=== PATIENT | female | born 1985 | race Caucasian/White ===

== ENCOUNTER 2016-08-30 06:14 | Day surgery (SDC) | payer OTHER ==
[~2016-08-30] VITALS: Ht 172.7 cm; Wt 71.0 kg
[~2016-08-30 06:14] MED LIST: No meds per pt.
[2016-08-30] MEDS ORDERED: LACTATED RINGERS 1,000 ML IV SCH (06:44)
[2016-08-30 06:48] VITALS: BP 115/81
[2016-08-30] MEDS ORDERED: BUPIVACAINE/PF-EPI 0.5% 1:200K ONE (06:52)
[2016-08-30] MEDS ORDERED: MIDAZOLAM 1 MG/ML, 2ML ONE (07:09)
[2016-08-30] MEDS ORDERED: FENTANYL PF 250 MCG/5ML ONE (07:09)
[2016-08-30] MEDS ORDERED: ONDANSETRON 2MG/ML, 2ML IVPush PRN (07:30)
[2016-08-30] MEDS ORDERED: PROMETHAZINE 25 MG/ML, 1ML IV PRN (07:30)
[2016-08-30] MEDS ORDERED: FENTANYL PF 100 MCG/2ML IV PRN (07:30)
[2016-08-30] MEDS ORDERED: HYDROmorphone 1 MG/ML, 1ML IV PRN (07:30)
[2016-08-30] MEDS ORDERED: OXYcodone 5 MG/5 ML ORAL.SOL UDC PO PRN (07:30)
[2016-08-30] MEDS ORDERED: MEPERIDINE/PF 25MG/0.5ML IVPush PRN (07:30)
[2016-08-30] MEDS ORDERED: ACETAMINOPHEN 325 MG TABLET PO PRN (07:30)
[2016-08-30] MEDS ORDERED: HYDROcodone/APAP 7.5-325MG/15ML UDC PO PRN (07:30)
[2016-08-30] MEDS ORDERED: MIDAZOLAM 1 MG/ML, 2ML IV PRN (07:30)
[2016-08-30 07:35] LABS: HCG UR OBC PASS
[2016-08-30] MEDS ORDERED: PROPOFOL 10 MG/ML, 20ML ONE (07:39)
[2016-08-30] MEDS ORDERED: ONDANSETRON 2MG/ML, 2ML ONE (07:39)
[2016-08-30] MEDS ORDERED: CEFAZOLIN 1,000 MG ONE (07:39)
[2016-08-30] MEDS ORDERED: KETOROLAC 30 MG/1 ML ONE (07:39)
[2016-08-30] MEDS ORDERED: DEXAMETHASONE 4 MG/ML, 1ML ONE (07:39)
[2016-08-30] MEDS ORDERED: OXYcodone 5 MG/5 ML ORAL.SOL UDC ONE (08:30)
== END 2016-08-30 09:50 ==
LOC: OUT 06:14
PROVIDERS: ATTEND Surgery
DX: D24.2 Benign neoplasm of left breast (principal); Z93.2 Ileostomy status; D50.9 Iron deficiency anemia, unspecified; G43.909 Migraine, unspecified, not intractable, without status migrainosus; Z87.19 Personal history of other diseases of the digestive system; Z98.890 Other specified postprocedural states
CPT/HCPCS: 19120; 81025; 88305; J0690; J1100; J1885; J2250; J2405; J2704; J3010